=== PATIENT | female | born 1985 | race Caucasian/White ===

== ENCOUNTER → 2018-09-10 15:53 | Outpatient (CLI) | payer OTHER, SELFPAY ==
[2017-03-22 08:52] VITALS: BMI 42.3
[2018-09-15 19:49] LABS: HPV HC, High Risk Negative (Negative)
== END ==
PROVIDERS: Visit Provider Obstetrics & Gynecology
DX: Z12.4 Encounter for screening for malignant neoplasm of cervix (principal)
CPT/HCPCS: 87624; 88175; G0145

== ENCOUNTER → 2019-09-29 16:30 | Outpatient (CLI) | payer OTHER, SELFPAY ==
[2019-10-04 16:08] LABS: Age Gdln ACOG Testing 30-65 (.)
[2019-10-04 18:50] LABS: HPV APTIMA, High Risk Negative (Negative); HPV Reflexed? YES, CHARGE PATIENT
== END ==
PROVIDERS: Visit Provider Obstetrics & Gynecology
DX: Z12.4 Encounter for screening for malignant neoplasm of cervix (principal)
CPT/HCPCS: 87624; 88175; G0145

== ENCOUNTER 2021-01-18 11:20 | Outpatient (RCR) | payer OTHER, SELFPAY ==
[2017-03-22 08:52] VITALS: BMI 42.3
== END 2021-04-02 23:59 ==
LOC: IMMUN 11:20
PROVIDERS: PCP Family Medicine; Referring Provider Family Medicine; Visit Provider Family Medicine
DX: Z23 Encounter for immunization (principal)
CPT/HCPCS: 0001A; 0002A; 91300

== ENCOUNTER → 2024-10-12 | Outpatient (CLI) | payer OTHER, SELFPAY ==
[2024-10-21 16:08] LABS: HPV APTIMA, High Risk Negative (Negative)
== END | disposition home or self-care (01) ==
LOC: LABSPEC 17:42
PROVIDERS: PCP Family Medicine; Referring Provider Advanced Practice Midwife; Visit Provider Advanced Practice Midwife
DX: Z12.4 Encounter for screening for malignant neoplasm of cervix (principal)
CPT/HCPCS: 87624; 88175; G0145